=== PATIENT | male | born 1970 | race African-American/Black ===

== ENCOUNTER 2020-03-18 00:03 | Emergency (ER) | payer SELFPAY ==
[2020-03-18 01:07] VITALS: BP 143/103; PULSE 73; TEMP 98.1; BMI 31.0
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
[2020-03-18] MEDS ORDERED: LIDOCAINE 1%/EPI 1:100000 (20 ML MULTI DOSE VIAL) ONE (01:52)
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
[2020-03-18] MEDS ORDERED: LIDOCAINE 2%/EPINEPHRINE 1:100000 (50 ML MD VIAL) INF ONE (02:09)
[2020-03-18] MEDS ORDERED: CEPHALEXIN MONOHYDRATE 500 MG CAPSULE (UD) PO ONE (02:09)
[2020-03-18] MEDS ORDERED: CEPHALEXIN MONOHYDRATE 500 MG CAPSULE (UD) ONE (02:27)
== END 2020-03-18 02:43 | disposition home or self-care (01) ==
LOC: JER 00:03
PROC: 0VQ5XZZ Repair Scrotum, External Approach (ICD-10-PCS; principal; 2020-03-18)
DX: S31.31XA Laceration without foreign body of scrotum and testes, initial encounter (principal)
CPT/HCPCS: 99284-25